=== PATIENT | male | born 1945 | race Native Hawaiian/Other Pacific Islander ===

== ENCOUNTER 2019-10-17 15:54 | Emergency (ER) | payer OTHER ==
[~2019-10-17] VITALS: Ht 172.7 cm; Wt 113.9 kg
[~2019-10-17 15:54] MED LIST: COLC0.6T6 PO; PANTOPRAZOLE 40MG TA PO
[2019-10-17 16:22] LABS: PLATELET COUNT 358 K/uL (142-355)
[2019-10-17 17:15] VITALS: BP 153/75; TEMP 97.7
[2019-10-17] MEDS ORDERED: PANTOPRAZOLE 40MG TA PO ×2 (17:50→17:51)
[2019-10-17] MEDS ORDERED: ALLO300T23 PO (17:51)
[2019-10-17] MEDS ORDERED: VITAMIN D32000 UNI3 PO (17:52)
[2019-10-17] MEDS ORDERED: FURO40TA93 PO (17:53)
[2019-10-17] MEDS ORDERED: FLONASE AL50 MCG/ACT INH (17:53)
[2019-10-17] MEDS ORDERED: CLARITIN10 MG PO (17:54)
[2019-10-17] MEDS ORDERED: FISH OIL1000 M1 PO (17:54)
[2019-10-17] MEDS ORDERED: KLOR-CON M2020 MEQ PO (17:55)
[2019-10-17] MEDS ORDERED: ANORO ELLIPTA 61 AER (17:55)
[2019-10-17] MEDS ORDERED: CARV6.25 PO (17:57)
[2019-10-17] MEDS ORDERED: MAG OXIDE400 MG PO (17:57)
[2019-10-17] MEDS ORDERED: MAGNSUS68 PO (17:58)
[2019-10-17] MEDS ORDERED: BISACODYL LAXAT10 MG RE (17:59)
[2019-10-17] MEDS ORDERED: HYDR5TAB9 PO (18:00)
[2019-10-17] MEDS ORDERED: TYLENOL325 MG PO (18:02)
[2019-10-17] MEDS ORDERED: LIPITOR80 MG PO (18:02)
[2019-10-17] MEDS ORDERED: MICARDIS80 MG PO (18:03)
[2019-10-17] MEDS ORDERED: PROAIR HFA PO (18:05)
[2019-11-01] MEDS ORDERED: PANTOPRAZOLE 40MG TA PO (10:59)
[2019-11-01] MEDS ORDERED: TYLENOL325 MG PO (11:04)
[2019-11-01] MEDS ORDERED: PROAIR HFA108 MCG/AC INH (11:05)
[2019-11-01] MEDS ORDERED: ALLO300T23 PO (11:05)
[2019-11-01] MEDS ORDERED: FLONASE AL50 MCG/ACT INH (11:06)
[2019-11-01] MEDS ORDERED: BISACODYL LAXAT10 MG RE (11:06)
[2019-11-01] MEDS ORDERED: LIPITOR80 MG PO (11:06)
[2019-11-01] MEDS ORDERED: CARV6.25 PO (11:06)
[2019-11-01] MEDS ORDERED: VITAMIN D32000 UNI3 PO (11:06)
[2019-11-01] MEDS ORDERED: CLARITIN10 MG PO (11:09)
[2019-11-01] MEDS ORDERED: HYDR5TAB9 PO (11:09)
[2019-11-01] MEDS ORDERED: MAGNSUS68 PO (11:10)
[2019-11-01] MEDS ORDERED: FISH OIL1000 M1 PO (11:10)
[2019-11-01] MEDS ORDERED: ANORO ELLIPTA 61 AER INH (11:11)
== END 2019-10-17 17:15 | disposition other institution (70) ==
LOC: ED 15:54
PROVIDERS: Hospitalist
DX: E86.0 Dehydration (principal); R39.2 Extrarenal uremia; B96.89 Other specified bacterial agents as the cause of diseases classified elsewhere; Z04.6 Encounter for general psychiatric examination, requested by authority
CPT/HCPCS: 80053; 85027; 93005; 99285